=== PATIENT | male | born 1985 | race Caucasian/White ===

== ENCOUNTER 2018-03-17 03:04 | Emergency (ER) | payer OTHER ==
[~2018-03-17] VITALS: Ht 167.6 cm; Wt 68.0 kg
[~2018-03-17 03:04] MED LIST: AUGMENTIN 875875 MG PO; IBUPROFEN 600600 M1 PO; NOHOMEMEDICATIONS; NORCO 5-325 TA1 EACH PO; ONDANSETRON HCL4 M2 PO; PENICILLIN V P500 MG PO; ULTRAM 50MG TAB50 MG PO; ZOFRAN ODT4 MG PO
[2018-03-17] MEDS ORDERED: ULTRAM 50MG TAB50 MG PO (04:18)
[2018-03-17] MEDS ORDERED: ZOFRAN4 MG PO (04:18)
[2018-03-17] MEDS ORDERED: PROTONIX40 M1 PO (04:18)
[2018-03-17] MEDS ORDERED: CARAFATE 1 GM TA1 G1 PO (04:18)
[2018-03-17 04:29] VITALS: BP 122/84
== END 2018-03-17 04:29 | disposition home or self-care (01) ==
LOC: ER 03:04
DX: K29.00 Acute gastritis without bleeding (principal); F17.210 Nicotine dependence, cigarettes, uncomplicated

== ENCOUNTER 2019-04-02 09:48 | Emergency (ER) | payer OTHER ==
[~2019-04-02] VITALS: Ht 167.6 cm; Wt 68.0 kg
[~2019-04-02 09:48] MED LIST changes: +CARAFATE 1 GM TA1 G1 PO; +PROTONIX40 M1 PO; +ZOFRAN4 MG PO
[2019-04-02] MEDS ORDERED: NAPROSYN500 MG PO (11:00)
[2019-04-02 11:11] VITALS: BP 113/74
== END 2019-04-02 11:12 | disposition home or self-care (01) ==
LOC: ER 09:48
DX: S59.801A Other specified injuries of right elbow, initial encounter (principal); M77.9 Enthesopathy, unspecified; F17.210 Nicotine dependence, cigarettes, uncomplicated; X50.9XXA Other and unspecified overexertion or strenuous movements or postures, initial encounter; Y93.89 Activity, other specified; Y92.89 Other specified places as the place of occurrence of the external cause; Y99.8 Other external cause status